=== PATIENT | female | born 1995 | race Two or more races ===

== ENCOUNTER 2017-09-16 12:02 | Outpatient (CLI) | payer OTHER | END 2017-09-16 14:10 | disposition home or self-care (01) | LOC: SONOGRAMA 12:02 | DX: N92.0 Excessive and frequent menstruation with regular cycle (principal) ==

== ENCOUNTER 2018-09-18 14:42 | Outpatient (CLI) | payer OTHER | END 2018-09-18 15:30 | disposition home or self-care (01) | LOC: NUCLEAR 14:42 | DX: I73.9 Peripheral vascular disease, unspecified (principal); I87.2 Venous insufficiency (chronic) (peripheral) ==

== ENCOUNTER 2018-09-18 17:05 | Emergency (ER) | payer OTHER ==
[~2018-09-18] VITALS: Ht 172.7 cm; Wt 92.1 kg
== END 2018-09-18 18:17 | disposition home or self-care (01) ==
LOC: ER 17:05
DX: S90.571A Other superficial bite of ankle, right ankle, initial encounter (principal); W57.XXXA Bitten or stung by nonvenomous insect and other nonvenomous arthropods, initial encounter; Y93.89 Activity, other specified; Y92.89 Other specified places as the place of occurrence of the external cause; Y99.8 Other external cause status

== ENCOUNTER → 2018-09-20 | Emergency (ER) | payer OTHER ==
[~2018-09-20] VITALS: Ht 172.7 cm; Wt 92.1 kg
== END | disposition home or self-care (01) ==
LOC: ER 22:33
DX: M65.871 Other synovitis and tenosynovitis, right ankle and foot (principal)

== ENCOUNTER → 2023-08-21 | Emergency (ER) | payer OTHER ==
[~2023-08-21] VITALS: Ht 172.7 cm; Wt 104.3 kg
== END | disposition left against medical advice (07) ==
LOC: ER 21:58
DX: Z53.21 Procedure and treatment not carried out due to patient leaving prior to being seen by health care provider (principal)